=== PATIENT | female | born 1940 | race Caucasian/White ===

== ENCOUNTER → 2024-07-19 10:02 | Outpatient (REF) | payer MEDICARE, SELFPAY | LOC: HWWDC 10:02 | PROVIDERS: ATTENDING PHYSICIAN Family Medicine; REFERRING PHYSICIAN Obstetrics & Gynecology Gynecology | DX: Z12.31 Encounter for screening mammogram for malignant neoplasm of breast (principal) | CPT/HCPCS: 77063; 77067 ==

== ENCOUNTER 2024-12-08 11:23 | Emergency (ER) | payer MEDICARE, SELFPAY ==
[2024-12-08 11:34] VITALS: BP 162/71
[2024-12-08] MEDS: ROXICODONE 5 MG PO (13:40)
[2024-12-08 13:52] LABS: % Basophils 0.5 % (0-2); % Eosinophils 3.5 % (0-6); % Immature Granulocytes 0.3 % (0-0.5); % Lymphocytes 26.1 % (20.5-51.1); % Neutrophils 60.6 % (42.2-75.2); Absolute Eosinophils 0.2 10^3/uL (0-0.7); Absolute Lymphocytes 1.7 10^3/uL (1.2-3.4); Absolute Monocytes 0.6 10^3/uL (0.1-0.6); Hematocrit 40.8 % (37.0-47.0); Hemoglobin 14.1 g/dL (12.0-16.0); Mean Corp Hgb Conc. 34.6 g/dL (33.0-37.0); Mean Corpuscular Hgb 30.7 pg (27.0-31.0); Mean Corpuscular Volume 88.7 fL (81.0-99.0); Nucleated Red Blood Cells % 0 %; Platelet Count 189 10^3/uL (130-400); White Blood Cell Count 6.6 10^3/uL (4.8-10.8)
--- NOTE | 2024-12-08 14:09 | ED.GENMED ---
History of Present Illness
General
Chief Complaint: DVT/Possible Blood Clot
Source: patient
Exam Limitations: none
Time Seen by Provider: 12/08/24 12:22
Nursing documentation reviewed up to this point in time: agreed with
History of Present Illness
History of Present Illness:
pt is a 84 y/o F with h/o HTN, HLD
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
here with R posterior pain and swelling to calf and behind knee x 3 days
atraumatic
says she normally does have swellin if she doesn't wear compression stockings but it has been worse and with pain that is not relieved with motrim and tramadol
she says it is worse with palpation and walking
she is on a statin
no redness, warmth, color change, fever, cp, sob, back pain, hip pain
has had R total hip replacement and sleeps in recliner chair but with he rlegs elevated
pt is very adamant about finding out what the cause of this pain is
Past History
Past History
ED Past Medical History: GERD, HTN, Hypercholesterolemia and Other (congenial L limb defect)
Social History
Tobacco: Non-smoker
Alcohol: None
Drug: None
Personal: Single
Review of Systems
Review of Systems
Allergies reviewed?: Yes
All Other Systems: Not applicable
Phy Exam
Physical Exam
Physical Exam:
GENERAL: Alert , in no apparent distress, comfortable at rest
HEAD: NCAT
CV: 2+ DP pulse
NEUROLOGICAL: Alert and oriented, no focal neuro deficits, , 5/5 strength, sensation intact, ambulation slight limp right leg
SKIN: Warm and dry, Normal color, some varicosities which are nontender, no palpable cords, no erythema, perfused cap refill in the foot, full painless range of motion
MUSCULOSKELETAL: I do not appreciate any edema in the right lower extremity, she has full full painless range of motion of the hip and knee and ankle, reports mild tenderness to the calf, no induration, no effusion in the knee
PSYCH: Normal and appropriate interaction.
Course
Orders/Labs/Results
Orders:
Orders
12/08/24
US Periph Venous LOWER Ext RT Urgent
Comment:
Reason For Exam: calf and swelling
12/08/24 13:36
Oxycodone [Roxicodone] 5 mg PO NOW STA
12/08/24 13:44
CPK [Creatine Phosphokinase] Urgent
Complete Blood Count/With Diff Urgent
Comprehensive Metabolic Panel Urgent
Magnesium Urgent
Abnormal Lab Results
12/08/24
13:44
Carbon Dioxide 31 H mmol/L
(22-30)
BUN 22 H mg/dl
(7-17)
Glucose 108 H mg/dl
(70-99)
Total Bilirubin 1.7 H mg/dl
(0.2-1.3)
Creatine Kinase 21 L U/L
(30-135)
12/08/24 13:44
12/08/24 13:44
Vital Signs
Initial and Last Documented VS:
Initial Vital Signs
Temp Pulse Resp BP Pulse Ox
36.2 C 70 18 162/71 98
12/08/24 11:34 12/08/24 11:34 12/08/24 11:34 12/08/24 11:34 12/08/24 11:34
Last Documented Vital Signs
Temp Pulse Resp BP Pulse Ox
36.2 C 70 18 162/71 98
12/08/24 11:34 12/08/24 11:34 12/08/24 11:34 12/08/24 11:34 12/08/24 11:34
MDM/Problems Addressed
Differential Diagnosis Includes:
rhabdo, dvt, varicose veins, sciatica, bakers cyst
MDM/Problems Addressed:
84 y/o F withh/o HTN, HLD
here with atruamati pain/swelling to R calf x 3 days
pt says she normally does wear compression stockings becaue when she doesn't her calf swells
but th epast few days she ahs had pain which is unusual
she does sit a lot
has prostehsis of L leg
pt has no skin changes, no significant swelling
pain is not only with walking but at rest, making claudication much less likely
pulse normal
perfused
SHE IS ALSO COMPLAINING OF POSTERIOR PAIN FROM RIGHT LATERAL HIP DOWN THE LEG; WHICH SOUNDS MUCH MORE LIKE SICATICA
SHE SITS A LOT
HOWEVER NO BACK INJURY OR PAIN
AND HAD THE HIP REPLACED
NORMAL SENSATION AND ROM
full ROm of the knee
no significant calf tenderness; pt says it hurts but does not seem to be bothered by palpation
US shows bakers cyst likely the cause of pain but pt concerned about antoher process and wanted labs
k, cpk, cr, wbc, all reassuring
lauren wrap, compression, ortho
*Critical Care Note
Total Time (30-74mins, 75-104mins- exclusive of procedures): Not Applicable
ED Attending Note
-
Portions of this chart may have been created with voice recognition software.� Occasional wrong word or��sound alike� substitutions may have occurred due to the inherent limitations of voice recognition software.
Discharge Plan
Departure
Patient Disposition: Home (Routine Discharge)
Date of Disposition: 12/08/24
Time of Disposition: 14:29
Patient with high blood pressure during this ER visit?: No
Condition: Fair
Covid-19: Not Applicable
Discharge Problem:
Colin's cyst of knee
Instructions: Colin's Cyst (DC)
Prescriptions:
No Action
atorvastatin 20 mg Tablet
20 mg PO DAILY
polyethylene glycol 3350 [Miralax] 17 gram Powder In Packet
17 g PO DAILY
atenolol 25 mg Tablet
25 mg PO DAILY
fexofenadine 180 mg Tablet
180 mg PO DAILY
pantoprazole [Protonix] 40 mg Tablet,Delayed Release (Dr/Ec)
40 mg PO QPM
vitamin B complex Tablet
1 tab PO DAILY
montelukast 10 mg Tablet
10 mg PO DAILY
calcium carbonate-vitamin D3 600 mg-10 mcg (400 unit) Capsule
2 cap PO DAILY
Prolia 60 mg/mL Syringe
60 mg SC [id number]
Centrum Silver Women
1 tab PO DAILY
cholecalciferol (vitamin D3) [Vitamin D3] 50 mcg (2,000 unit) Capsule
50 mcg PO DAILY
ascorbic acid (vitamin C) [Vitamin C] 500 mg Tablet Extended Release
500 mg PO DAILY
mupirocin 2 % ointment
1 applic topical BID Qty: 1 0RF
aspirin 325 mg Tablet
325 mg PO DAILY Qty: 1 0RF
Rx Instructions:
take with food
dexamethasone 2 mg Tablet
2 mg PO Q12 Qty: 4 0RF
Rx Instructions:
take with food
continue 2 days post d/c
ibuprofen 400 mg Tablet
400 mg PO BID Qty: 2 0RF
sennosides [senna] 8.6 mg Tablet
17.2 mg PO BID Qty: 2 0RF
acetaminophen [Pain Reliever ES(acetaminophn)] 500 mg Tablet
1,000 mg PO QID Qty: 2 0RF
Rx Instructions:
scheduled dosing
dose with Ultram/Tramadol
tramadol 50 mg Tablet
50 mg PO QID Qty: 30 0RF
Rx Instructions:
Dx VICKY
Ongoing therapy
diazepam 2 mg Tablet
2 mg PO HS Qty: 7 0RF
bisacodyl [Dulcolax (bisacodyl)] 10 mg suppository
10 mg OK DAILY PRN (Reason: constipation) Qty: 1 0RF
oxycodone 5 mg tablet
5 mg PO Q4HPRN PRN (Reason: moderate-severe pain) Qty: 30 0RF
Rx Instructions:
Dx TKA
ongoing therapy
Referrals:
Pablo Bowen MD [Family Provider] -
Sheldon Billingsley MD [Active] - Follow up in 5-7 days (ORTHO)
Activity Restrictions/Additional Instructions:
YOUR ULTRASOUND SHOWED NO BLOOD CLOT
YOUR BLOOD WORK ALSO WAS REASSURING
YOUR PAIN IS LIKELY FROM A COLIN'S CYST WHICH CAN CAUSE PAIN AND SWELLING THE CYST RUPTURES
IT SHOULD SELF RESOLVE
WEAR COMPRESSION STOCKING DURIN GTH EDAY AND AN LAUREN WRAP ON YOU RKNEE
TAKE THEM OFF AT NIGHT
FOLLOW UP WITH DR. BILLINGSLEY
RETURN FOR : SEVERE PAIN, PAIN THAT IS MUCH WORSE WITH WALKING AND RESOLVES AT REST, COLOR CHANGE, COLD FOOT, FEVER, TROUBLE BREATHING, TROUBL EWALKING OR ANY CONCERNS.
CONTINUE YOUR PAIN MEDICATIONS AT HOME.
Interventions
Interventions:
*Risk Screen - Suicide Last Done: 12/08/24 11:34
*General Assessment Last Done: 12/08/24 11:34
*Neglect/Abuse Screening Last Done: 12/08/24 11:34
*ED COVID-19 Vaccine History Last Done: 12/08/24 11:34
Discharge Date and Time
Print Language: CHINESE
[2024-12-08 14:16] LABS: ALT (SGPT) 29 U/L (0-35); AST (SGOT) 36 U/L (14-36); Albumin 4.1 g/dl (3.5-5.0); Alkaline Phosphatase 52 U/L (38-126); Blood Urea Nitrogen 22 mg/dl (7-17); Carbon Dioxide 31 mmol/L (22-30); Chloride 101 mmol/L (98-107); Creatine Phosphokinase 21 U/L (30-135); Glucose 108 mg/dl (70-99); Potassium 4.6 mmol/L (3.5-5.1); Sodium 139 mmol/L (135-145); Total Bilirubin 1.7 mg/dl (0.2-1.3); Total Protein 6.6 g/dl (6.3-8.2); eGFR 55.21
[2024-12-08 15:04] VITALS: BP 163/63
--- NOTE | 2024-12-08 15:12 | EDRN ---
L knee wrapped in ishmael wrap. Pt also wore her knee high compression stocking as well.
== END 2024-12-08 15:12 | disposition home or self-care (01) ==
LOC: EMR 11:23
PROVIDERS: Physician Assistant; EMERGENCY PHYSICIAN Student in an Organized Health Care Education/Training Program; FAMILY PHYSICIAN Family Medicine
DX: M71.21 Synovial cyst of popliteal space [Baker], right knee (principal); M79.661 Pain in right lower leg; M79.89 Other specified soft tissue disorders; E78.00 Pure hypercholesterolemia, unspecified; I10 Essential (primary) hypertension; K21.9 Gastro-esophageal reflux disease without esophagitis; G47.30 Sleep apnea, unspecified; J45.909 Unspecified asthma, uncomplicated; M19.90 Unspecified osteoarthritis, unspecified site; M81.0 Age-related osteoporosis without current pathological fracture; Z96.641 Presence of right artificial hip joint; Z85.3 Personal history of malignant neoplasm of breast; Z92.3 Personal history of irradiation; Z79.82 Long term (current) use of aspirin; Z89.512 Acquired absence of left leg below knee; Z88.8 Allergy status to other drugs, medicaments and biological substances; Z91.048 Other nonmedicinal substance allergy status
CPT/HCPCS: 99284; 80053; 82550; 83735; 85025; 93971

== ENCOUNTER → 2024-12-18 15:56 | Outpatient (REF) | payer MEDICARE, SELFPAY | LOC: RAD 15:56 | PROVIDERS: ATTENDING PHYSICIAN Radiology Diagnostic Radiology; FAMILY PHYSICIAN Family Medicine | DX: Z01.818 Encounter for other preprocedural examination (principal) | CPT/HCPCS: 72070; 72100 ==

== ENCOUNTER → 2025-03-29 13:13 | Outpatient (REF) | payer MEDICARE, SELFPAY | LOC: RAD 13:13 | PROVIDERS: ATTENDING PHYSICIAN Internal Medicine Rheumatology; FAMILY PHYSICIAN Family Medicine | DX: M81.0 Age-related osteoporosis without current pathological fracture (principal) | CPT/HCPCS: 77080 ==

== ENCOUNTER → 2025-07-24 14:12 | Outpatient (REF) | payer MEDICARE, SELFPAY | LOC: WDC 14:12 | PROVIDERS: ATTENDING PHYSICIAN Family Medicine | DX: Z12.31 Encounter for screening mammogram for malignant neoplasm of breast (principal) | CPT/HCPCS: 77063; 77067 ==